=== PATIENT | female | born 1965 | race Caucasian/White ===

== ENCOUNTER 2022-10-31 21:16 | Emergency (ER) | payer OTHER, SELFPAY ==
[2022-10-31 21:27] VITALS: BP 124/78; PULSE 93; RESP 18; TEMP 36.9; O2SAT 96
--- NOTE | 2022-10-31 21:35 | ED_ITS ---
HPI - General Adult General Chief complaint: Sore Throat Stated complaint: strep throat Time Seen by Provider: 10/31/22 21:37 History of Present Illness HPI narrative: headache, sore throat, swollen gland at throat. Pt worried about strep throat. Pt is taking care of hr daughters children (pts grnd kids) while daughter is having her new baby Dduec-[id number]-[id number]-old woman here with concern of sore throat now 2nd day. She has been taking care of her grand kids and is worried about potentially affecting him. Was that some larger social event recently. Unclear contact though. She has felt warm but no measured fever. Feels particularly sore in the right side of her upper neck. Not having trouble breathing. No rash noted. No rhinorrhea. No cough or cold symptoms Related Data Allergies Allergy/AdvReac Type Severity Reaction Status Date / Time No Known Drug Allergies Allergy Verified 10/31/22 21:31 Review of Systems Status of ROS: Reports: 6 or more systems reviewed and unremarkable except as noted in History and below Exam Narrative: Exam Narrative: Very pleasant. Seems tired. NAD otherwise. Breathing easily. There is no stridor. Lungs are clear. Heart with elevated rate in a regular rhythm. Neck is supple some fullness to the adenoids right is more tender. Oropharynx is mildly erythematous little exudate on the right tonsil. No marked asymmetry. Skin is quite warm and is dry. Const: Vital Signs, click to edit/add: Vital Signs - 24 hr 10/31/22 21:27 Temperature 98.5 F Pulse Rate [Left P ulse Oximeter] 93 Respiratory Rate 18 Blood Pressure [Ri ght Upper Arm] 124/78 Pulse Oximetry 96 Oxygen Delivery Me thod Room Air Documenting provider has reviewed patient's vital signs: yes Course Vital Signs Vital signs: Initial Vital Signs Temperature 98.5 F 10/31/22 21:27 Temperature Source Temporal Artery Scan 10/31/22 21:27 Pulse Rate 93 10/31/22 21:27 Pulse Rhythm Regular 10/31/22 21:27 Respiratory Rate 18 10/31/22 21:27 Blood Pressure 124/78 10/31/22 21:27 Blood Pressure Mean 93 10/31/22 21:27 Blood Pressure Position Sitting 10/31/22 21:27 Pulse Oximetry 96 10/31/22 21:27 Oxygen Delivery Method Room Air 10/31/22 21:27 Vital Signs Temperature 98.5 F 10/31/22 21:27 Pulse Rate 93 10/31/22 21:27 Respiratory Rate 18 10/31/22 21:27 Blood Pressure 124/78 10/31/22 21:27 Pulse Oximetry 96 10/31/22 21:27 Oxygen Delivery Method Room Air 10/31/22 21:27 Temperature 98.5 F 10/31/22 21:27 Pulse Rate 93 10/31/22 21:27 Respiratory Rate 18 10/31/22 21:27 Blood Pressure 124/78 10/31/22 21:27 Pulse Oximetry 96 10/31/22 21:27 Oxygen Delivery Method Room Air 10/31/22 21:27 Medical Decision Making MDM Narrative Medical decision making narrative: Strep is already been collected. I think it is reasonable. Throat looks less likely to be strep but certainly possible as is meeting criteria. Testing indeed positive. Was given acetaminophen instead of ibuprofen in the emergency department due to history of Crohn's Opted for the shot so given Bicillin LA 1.2 million units. See patient discharge plan Lab Data Lab results reviewed: Yes I reviewed the patient's lab results Labs: Lab Results 10/31/22 Range/Units 21:25 Group A Strep DNA DETECTED A (Not Detectd) Discharge Plan Discharge Clinical Impression: Acute streptococcal pharyngitis Patient Disposition: Home, Self-Care Condition: Stable Additional Instructions: Might try 1/4 tsp salt in 4 oz warm water and gargle 2 - 3 times daily. Anesthetic throat lozenges or sprays like Sucrets or Chloraseptic might be helpful. Focus on hydration. Since you do not take ibuprofen can take up to 1 g of acetaminophen per dose. Boil all toothbrushes that might be in the vicinity of yours. 3 minute should be enough. Then separate toothbrushes and boil yours on day 3, day 6, day 9. Follow Up/Referrals: Triston Ty MD [Primary Care Provider] - Stand Alone [facility] Info Instructions
[2022-10-31 22:15] LABS: Strep A DNA Probe* DETECTED (Not Detectd)
[2022-10-31] MEDS: ACETAMINOPHEN 500 MG TABLET 1000 MG PO (22:49)
== END 2022-10-31 22:55 | disposition home or self-care (01) ==
PROVIDERS: Emergency Provider Family Medicine; PCP Family Medicine
DX: J02.0 Streptococcal pharyngitis (principal)
CPT/HCPCS: 87651; 99282; 99283; A9270; J0558

== ENCOUNTER 2024-09-18 09:18 | Outpatient (CLI) | payer BC, SELFPAY | END 2024-09-18 09:19 | disposition home or self-care (01) | LOC: INJ CL 09:20 | PROVIDERS: PCP Family Medicine; Visit Provider Family Medicine | DX: M54.16 Radiculopathy, lumbar region (principal) | CPT/HCPCS: 62323; J0702; Q9966 ==

== ENCOUNTER 2024-11-20 09:25 | Outpatient (CLI) | payer BC, SELFPAY | END 2024-11-20 09:26 | disposition home or self-care (01) | LOC: INJ CL 09:27 | PROVIDERS: PCP Family Medicine; Visit Provider Family Medicine | DX: M54.16 Radiculopathy, lumbar region (principal); M51.369 Other intervertebral disc degeneration, lumbar region without mention of lumbar back pain or lower extremity pain | CPT/HCPCS: 62323; J0702; Q9966 ==

== ENCOUNTER 2025-01-22 10:21 | Outpatient (CLI) | payer BC, SELFPAY | END 2025-01-22 10:22 | disposition home or self-care (01) | LOC: INJ CL 10:21 | PROVIDERS: PCP Family Medicine; Visit Provider Family Medicine | DX: M54.16 Radiculopathy, lumbar region (principal); M51.362 Other intervertebral disc degeneration, lumbar region with discogenic back pain and lower extremity pain | CPT/HCPCS: 62323; J0702; Q9966 ==